=== PATIENT | female | born 1995 | race Two or more races ===

== ENCOUNTER 2021-02-01 13:02 | Emergency (ER) | payer OTHER ==
[2021-02-01 13:12] VITALS: BP 139/77
[2021-02-01] MEDS ORDERED: SULFAMETH/TRIMETH DS 800/160 MG TABLET PO STA (14:59)
--- NOTE | 2021-02-01 15:02 | ED Physician Documentation ---
History of Present Illness - Stated complaint Stated Complaint: LUMP RT BACKSIDE - Chief complaint Chief Complaint: General - Additonal information Additional information: 25-year old female presents emergency department with 3 days of right buttock pain. She has noticed swelling and this morning she began to have some bleeding. She does shave her perirectal area and thinks she may have an ingrown hair. Tetanus is up-to-date. No history of diabetes. Review of Systems Constitutional: reports: Reviewed and negative Nose: reports: Reviewed and negative Throat: reports: Reviewed and negative Cardiac: reports: Reviewed and negative Respiratory: reports: Reviewed and negative GI: reports: Reviewed and negative : reports: Reviewed and negative Skin: reports: Lesions (Right buttock) PD PAST MEDICAL HISTORY - Present Medications Home Medications: Ambulatory Orders Medication Instructions Recorded Confirmed HYDROcod/ACETAM 5/325 [[place] 5/325] 1 - 2 tablet PO Q6H PRN #14 tablet 02/01/21 Sulfamethox/Trimeth 800/160 1 each PO BID #14 tablet 02/01/21 [Bactrim Ds 800/160] - Allergies Allergies/Adverse Reactions: Allergies Allergy/AdvReac Type Severity Reaction Status Date / Time No Known Drug Allergies Allergy Verified 02/01/21 13:08 PD ED PE NORMAL - General General: Alert and oriented X 3. No: No acute distress (And pain.) - Cardiac Cardiac: RRR, No murmur - Respiratory Respiratory: No respiratory distress, Clear bilaterally - Rectal Rectal: Other (Right buttock with evidence that an abscess is draining with a moderate amount of purulent bloody fluid. No further fluctuance is felt with palpation. Abscess does not extend to the perirectal space. No rectal tenderness.) Results - Vitals Vitals: Vital Signs - 24 hr 02/01/21 13:08 Temperature 36.5 C Heart Rate 79 Respiratory 16 Rate Blood Pressure 139/77 H O2 Saturation 99 Oxygen O2 Source Room air PD MEDICAL DECISION MAKING - ED course Complexity details: reviewed results, re-evaluated patient, d/w patient ED course: 25-year-old female presents emergency department for evaluation of a right buttock abscess that began developing 3 days ago and started to drain today. She is exquisitely painful. On exam there is an abscess that is open and draining but no fluctuance is seen. I did offer patient the opportunity for incision and drainage here in the emergency department but after shared decision making we will start antibiotics today and if not markedly better in 48 hours return to the ER for more formal incision and drainage. However I am reassured that it is spontaneously draining at this time. Prescription for Bactrim and a limited amount of hydrocodone is sent. Departure - Departure Disposition: Home, Self Care Clinical Impression: Abscess of buttock, right Condition: Stable Record reviewed to determine appropriate education?: Yes Prescriptions: Sulfamethox/Trimeth 800/160 [Bactrim Ds 800/160] 1 each PO BID #14 tablet HYDROcod/ACETAM 5/325 [[place] 5/325] 1 - 2 tablet PO Q6H PRN #14 tablet PRN Reason: Pain Comments: Fatoumata you have an abscess on your right buttock. It has started to open and drained spontaneously therefore we will defer a formal an incision and drainage here in the emergency department. I would like you to fill the prescription for the Bactrim and begin taking twice daily as prescribed. Have also written a prescription for a limited amount of hydrocodone. Be careful with hydrocodone it intoxicated you and make you unsafe to drive. If your pain and symptoms are not markedly better in 48 to 72 hours or worsening before then please return to the emergency department at that time we would need to do a formal incision and drainage.
== END 2021-02-01 15:20 | disposition home or self-care (01) ==
LOC: ED 13:02
DX: L02.31 Cutaneous abscess of buttock (principal)
CPT/HCPCS: 99282; 99283; A9270

== ENCOUNTER 2021-04-26 07:44 | Emergency (ER) | payer OTHER ==
[2021-04-26] MEDS ORDERED: DEXAMETHASONE 10 MG/ML VIAL IVP STA (08:02)
[2021-04-26] MEDS ORDERED: KETOROLAC 15 MG/ML VIAL IVP STA (08:02)
[2021-04-26] MEDS ORDERED: SODIUM CHLORIDE 0.9% 1,000 ML IV STA (08:02)
--- NOTE | 2021-04-26 08:05 | ED Physician Documentation ---
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 No shortness of breath. 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 : None HEENT: None Musculoskeletal: None Derm: None - Past Surgical History Past Surgical History: Yes HEENT: Tonsil/Adenoidectomy - Present Medications Home Medications: Ambulatory Orders Medication Instructions Recorded Confirmed HYDROcod/ACETAM 5/325 [[place] 5/325] 1 - 2 tab PO Q6H PRN #15 tablet 04/26/21 Ibuprofen [Motrin] 800 mg PO Q8H PRN #20 tablet 04/26/21 Loperamide [Imodium] 2 mg PO QID PRN #10 cap 04/26/21 Ondansetron Odt [Zofran] 4 mg TL Q6H PRN #10 tablet 04/26/21 dexAMETHasone [Decadron] 4 mg PO BIDWM #10 tablet 04/26/21 - Allergies Allergies/Adverse Reactions: Allergies Allergy/AdvReac Type Severity Reaction Status Date / Time No Known Drug Allergies Allergy Verified 04/26/21 08:07 - Social History Does the pt smoke?: No Smoking Status: Never smoker Does the pt drink ETOH?: Yes Does the pt have substance abuse?: No - Immunizations Immunizations are current?: Yes PD ED PE NORMAL - Vitals Vital signs reviewed: Yes - General General: Alert and oriented X 3, No acute distress - HEENT HEENT: PERRL, EOMI - Neck Neck: Supple, no meningeal sign, No bony TTP - Cardiac Cardiac: RRR, No murmur - Respiratory Respiratory: No respiratory distress, Clear bilaterally - Abdomen Abdomen: Non tender - Derm Derm: Normal color, Warm and dry - Neuro Neuro: Alert and oriented X 3, Normal speech Results - Vitals Vitals: Vital Signs - 24 hr 04/26/21 04/26/21 04/26/21 07:49 10:06 11:45 Temperature 37.3 C 36.8 C 36.9 C Heart Rate 99 65 65 Respiratory 16 18 18 Rate Blood Pressure 137/87 H 115/93 H 114/68 O2 Saturation 98 100 100 Oxygen O2 Source Room air - Labs Labs: Laboratory Tests 04/26/21 07:54 Nasal Adenovirus (PCR) NOT DETECTED Nasal B. parapertussis DNA (PCR) NOT DETECTED Nasal Coronavir 229E PCR NOT DETECTED Nasal Coronavir HKU1 PCR NOT DETECTED Nasal Coronavir NL63 PCR NOT DETECTED Nasal Coronavir OC43 PCR NOT DETECTED Nasal Enterovir/Rhinovir PCR NOT DETECTED Nasal Influenza B PCR NOT DETECTED Nasal Influenza A PCR NOT DETECTED Nasal Parainfluen 1 PCR NOT DETECTED Nasal Parainfluen 2 PCR NOT DETECTED Nasal Parainfluen 3 PCR NOT DETECTED Nasal Parainfluen 4 PCR NOT DETECTED Nasal RSV (PCR) NOT DETECTED Nasal B.pertussis DNA PCR NOT DETECTED Nasal C.pneumoniae (PCR) NOT DETECTED Juan Human Metapneumo PCR NOT DETECTED Nasal M.pneumoniae (PCR) NOT DETECTED Nasal SARS-CoV-2 (PCR) DETECTED A PD MEDICAL DECISION MAKING - ED course ED course: 25-year-old woman active duty [employer] presents with typical Covid symptoms for 1 day and is found to be positive. She was administered Mab therapy which she is a candidate for given her BMI. Departure - Departure Disposition: 01 Home, Self Care Clinical Impression: COVID-19 Condition: Good Record reviewed to determine appropriate education?: Yes Instructions: ED Viral Syndrome Prescriptions: dexAMETHasone [Decadron] 4 mg PO BIDWM #10 tablet Loperamide [Imodium] 2 mg PO QID PRN #10 cap PRN Reason: Diarrhea Ibuprofen [Motrin] 800 mg PO Q8H PRN #20 tablet PRN Reason: PAIN &/OR FEVER HYDROcod/ACETAM 5/325 [[place] 5/325] 1 - 2 tab PO Q6H PRN #15 tablet PRN Reason: Pain Ondansetron Odt [Zofran] 4 mg TL Q6H PRN #10 tablet PRN Reason: Nausea / Vomiting Comments: You are found today to have COVID-19 in the setting of classic symptoms. You need to self isolate in your home. You should not leave your house, someone else should go to the pharmacy to pick up truck driver your prescriptions for you etc. Return if you develop significant shortness of breath. I am prescribing a short course of narcotic pain medication for you. These are potentially dangerous and addictive medications that should be used carefully. These medications may constipate you. Take an [id number] stool softener (docusate) twice daily with plenty of water while taking these medications. If you go 24 hours without a bowel movement, take [id number] miralax, per package instructions. Do not drink or drive while taking these medications. If you received narcotic or sedating medications while in the emergency department, do not drive for 24 hours. Store this medication in a safe, secure place and out of reach of children. It is a violation of federal law to give or sell this medication to another person or to use in a manner other than prescribed. The ED will not refill narcotic prescriptions, including prescriptions lost or stolen. To dispose of unwanted medications: 1. [facility] at [address] in [place] has a medication drop box. They accept prescription medications (in pill form) Monday through Monday 9:00 a.m. to 5:00 p.m. 2. The [facility] accepts prescription medications (in pill form only) for disposal year round. Call for more information. 3. Contact the [facility] for the next [facility] sponsored prescription drug collection event. , [phone], or [phone]; Note that many narcotic pain relievers also contain Tylenol/acetaminophen. Please ensure that your total dose of acetaminophen from all sources does not exceed 3 g (3000 mg) per day. If any friends or family get sick and would like to have a Covid test done, but do not have signs or symptoms that would necessitate being hospitalized, we encourage testing through our coronavirus swabbing station, call [phone] to schedule an appointment. Forms: Activity restrictions Discharge Date/Time: 04/26/21 11:45
[2021-04-26] MEDS ORDERED: ONDANSETRON 4 MG/2 ML VIAL IVP STA (08:09)
[2021-04-26 09:17] LABS: CORONAVIRUS 229E-RESP PCR NOT DETECTED; CORONAVIRUS HKU1-RESP PCR NOT DETECTED; CORONAVIRUS NL63-RESP PCR NOT DETECTED; CORONAVIRUS OC43-RESP PCR NOT DETECTED
[2021-04-26 09:21] LABS: B. PARAPERTUSSIS- RESP PCR PAN NOT DETECTED; B. PERTUSSIS- RESP PCR PANEL NOT DETECTED; C. PNEUMONIAE- RESP PCR PANEL NOT DETECTED; HUMAN METAPNEUMOVIRUS NOT DETECTED; INFLUENZA A- RESP PCR PANEL NOT DETECTED; INFLUENZA B - RESP PCR PANEL NOT DETECTED; M. PNEUMONIAE- RESP PCR PANEL NOT DETECTED; PARAINFLUENZA VIRUS 1 NOT DETECTED; PARAINFLUENZA VIRUS 2 NOT DETECTED; PARAINFLUENZA VIRUS 3 NOT DETECTED; PARAINFLUENZA VIRUS 4 NOT DETECTED; RHINOVIRUS/ENTEROVIRUS NOT DETECTED; RSV- RESP PCR PANEL NOT DETECTED; SARS-CoV-2 -RESP PCR PANEL DETECTED
[2021-04-26] MEDS ORDERED: [UNRECOGNIZED DRUG - OTHER] IV ONE (10:00)
[2021-04-26 11:58] VITALS: BP 114/68
== END 2021-04-26 11:45 | disposition home or self-care (01) ==
LOC: ED 07:44
DX: U07.1 COVID-19 (principal); Z23 Encounter for immunization
CPT/HCPCS: 0202U; 96374; 96375; 99284; 99285; J7040; M0243; Q0243

== ENCOUNTER 2021-07-15 16:41 | Emergency (ER) | payer OTHER ==
[2021-07-15 17:07] VITALS: BP 143/96
--- NOTE | 2021-07-15 17:18 | ED Physician Documentation ---
PD HPI HEADACHE - Stated complaint Stated Complaint: CHILLS/HEADACHE/LIGHTHEADED - Chief complaint Chief Complaint: Heent - History obtained from History obtained from: Patient (Who presents with a headache earlier today that has since resolved and a "fuzzy" feeling earlier. She also felt some chills. She has not attempted any medication or other treatment for this but was told to come in and be checked for Covid to be on the safe side. 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: None : None HEENT: None Musculoskeletal: None Derm: None - Past Surgical History Past Surgical History: Yes HEENT: Tonsil/Adenoidectomy - Present Medications Home Medications: Ambulatory Orders Medication Instructions Recorded Confirmed No Known Home Medications 07/15/21 07/15/21 - Allergies Allergies/Adverse Reactions: Allergies Allergy/AdvReac Type Severity Reaction Status Date / Time No Known Drug Allergies Allergy Verified 07/15/21 17:07 - Social History Does the pt smoke?: No Smoking Status: Never smoker Does the pt drink ETOH?: Yes Does the pt have substance abuse?: No - Immunizations Immunizations are current?: Yes PD ED PE NORMAL - Vitals Vital signs reviewed: Yes - General General: Alert and oriented X 3, No acute distress, Well developed/nourished - HEENT HEENT: Atraumatic, PERRL, EOMI, Ears normal, Moist mucous membranes, Pharynx benign - Neck Neck: Supple, no meningeal sign, No bony TTP, No adenopathy, No JVD - Cardiac Cardiac: RRR, No murmur - Respiratory Respiratory: No respiratory distress, Clear bilaterally - Abdomen Abdomen: Normal bowel sounds, Soft, Non tender, Non distended - Derm Derm: Normal color, Warm and dry, No rash - Neuro Neuro: Alert and oriented X 3 Eye Opening: Spontaneous Motor: Obeys Commands Verbal: Oriented GCS Score: 15 - Psych Psych: Normal mood, Normal affect Results - Vitals Vitals: Vital Signs - 24 hr 07/15/21 16:45 Temperature 37 C Heart Rate 73 Respiratory 16 Rate Blood Pressure 143/96 H O2 Saturation 100 Oxygen O2 Source Room air PD MEDICAL DECISION MAKING - ED course Complexity details: considered differential ED course: 25-year-old female who presented with a headache that has since resolved. She was advised by her work to go get tested for Covid. She is feeling better now. Covid test was obtained and results will be available in 24 to 48 hours. Patient advised to rest in stable hydrated, she may take Tylenol as needed for headache. Headache was not severe, no accompanying neuro changes, no fever or other symptoms of Covid, I have low suspicion though we will check. Patient advised to stay self isolate until tests resulted. Departure - Departure Disposition: 01 Home, Self Care Clinical Impression: Headache Qualifiers: Headache type: unspecified Headache chronicity pattern: acute headache Intractability: not intractable Qualified Code(s): R51.9 - Headache, unspecified Condition: Good Comments: Please stay home and self isolate until you receive your covid results. You may take tylenol as needed for headache, ensure you are getting plenty of oral fluids and rest. Return to the ER if you have worsening symptoms. Forms: Activity restrictions
== END 2021-07-15 17:42 | disposition home or self-care (01) ==
LOC: ED 16:41
DX: R51.9 Headache, unspecified (principal); Z86.16 Personal history of COVID-19; Z20.822 Contact with and (suspected) exposure to COVID-19
CPT/HCPCS: 99282; 99283

== ENCOUNTER 2021-12-03 06:31 | Emergency (ER) | payer OTHER ==
[2021-12-03 06:46] VITALS: BP 123/60
[2021-12-03] MEDS ORDERED: CHERRY SYRUP 10 ML UDC PO ONE (07:20)
[2021-12-03] MEDS ORDERED: DEXAMETHASONE 10 MG/ML VIAL PO STA (07:20)
--- NOTE | 2021-12-03 07:23 | ED Physician Documentation ---
PD HPI SKIN - Stated complaint Stated Complaint: NAUSEA/FACE BURNING - Chief complaint Chief Complaint: Wound - History obtained from History obtained from: Patient - History of Present Illness Timing - onset: Yesterday Timing - duration: Days (2) Timing - details: Gradual onset, Still present Location: Face Quality / character: Itchy, Burning, Swelling Improved by: Benadryl Associated symptoms: Facial swelling. No: Fever, Myalgias, Headache, Dyspnea, N/V/D, Urinary sx Contributing factors: Other (exposure to aminah in shop) Similar symptoms before: Has not had sx before Recently seen: Not recently seen - Additional information Additional information: Previously well 25-year-old female picked up a protective helmet at her work and put this on and subsequently she began to develop some itching around the edges of her face and yesterday developed itching burning redness and hives. She took some Benadryl the hives got better she is continue to have burning sensation to her face. She is having some difficulty with long COVID symptoms including some shortness of breath. She is not otherwise ill. Her shortness of breath is not different from usual. She is not otherwise ill. She did get some mild nausea. Review of Systems Constitutional: denies: Fever Eyes: denies: Decreased vision Ears: denies: Ear pain Nose: denies: Congestion Throat: denies: Sore throat Cardiac: denies: Chest pain / pressure Respiratory: reports: Dyspnea. denies: Cough GI: reports: Nausea. 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 : None HEENT: None Musculoskeletal: None Derm: None - Past Surgical History Past Surgical History: Yes HEENT: Tonsil/Adenoidectomy - Present Medications Home Medications: Ambulatory Orders Medication Instructions Recorded Confirmed No Known Home Medications 07/15/21 12/03/21 - Allergies Allergies/Adverse Reactions: Allergies Allergy/AdvReac Type Severity Reaction Status Date / Time No Known Drug Allergies Allergy Verified 12/03/21 06:46 - Social History Does the pt smoke?: No Smoking Status: Former smoker Does the pt drink ETOH?: No Does the pt have substance abuse?: No - Immunizations Immunizations are current?: Yes - POLST Patient has POLST: No PD ED PE NORMAL - Vitals Vital signs reviewed: Yes (normal) - General General: Alert and oriented X 3, No acute distress, Well developed/nourished - HEENT HEENT: Atraumatic, PERRL, EOMI, Other (Mild erythema and tiny areas of excoriation to the forehead. There is no significant swelling to the face that I am able to appreciate.) - Neck Neck: Supple, no meningeal sign - Cardiac Cardiac: RRR, No murmur - Respiratory Respiratory: No respiratory distress, Clear bilaterally - Abdomen Abdomen: Soft, Non tender - Back Back: No CVA TTP, No spinal TTP - Derm Derm: Normal color, Warm and dry, Other (mild erythema to the face) - Extremities Extremities: No deformity, No edema - Neuro Neuro: Alert and oriented X 3, finishing inspector 2-12 intact, No motor deficit, No sensory deficit, Normal speech Eye Opening: Spontaneous Motor: Obeys Commands Verbal: Oriented GCS Score: 15 - Psych Psych: Normal mood, Normal affect Results - Vitals Vitals: Vital Signs - 24 hr 12/03/21 06:35 Temperature 36.3 C L Heart Rate 90 Respiratory 18 Rate Blood Pressure 123/60 O2 Saturation 98 Oxygen O2 Source Room air PD MEDICAL DECISION MAKING - ED course Complexity details: reviewed old records, considered differential, d/w patient ED course: 25-year-old female with what appears to be a contact dermatitis to the face has bathed she has used some cortisone to her face her face does not look like it is overwhelmed. She does not have hives today she appears to have been responding to the Benadryl and I have added in a dose of dexamethasone and encouraged patient to take Benadryl or a nonsedating hist antihistamine for the next 2 days. I have given her a note for work for 2 days. She does appear uncomfortable related to this itching and burning on her face. Departure - Departure Disposition: 01 Home, Self Care Clinical Impression: Contact dermatitis Qualifiers: Contact dermatitis type: allergic Contact dermatitis trigger: other trigger Qualified Code(s): L23.89 - Allergic contact dermatitis due to other agents; L23.8 - Allergic contact dermatitis due to other agents Condition: Stable Instructions: ED Dermatitis Contact Follow-Up: HELENE GILLIS MD [Primary Care Provider] - Comments: Fatoumata, today it looks like you have a contact dermatitis and the recommendation is to wash your skin thoroughly apply [id number] cortisone for discomfort and to use an antihistamine for the next 2 days. You have been given a dose of dexamethasone today and the expectation is that over the next several hours the symptoms will improve dramatically. We are not expecting you to have progression of these symptoms. If that happens come back and see us or get into see Dr. Perry. Forms: Activity restrictions
== END 2021-12-03 07:46 | disposition home or self-care (01) ==
LOC: ED 06:31
DX: L23.89 Allergic contact dermatitis due to other agents (principal); Z87.891 Personal history of nicotine dependence
CPT/HCPCS: 99282; A9270

== ENCOUNTER 2022-09-06 19:15 | Outpatient (CLI) | payer OTHER | END 2022-09-06 19:16 | disposition home or self-care (01) | LOC: SC 19:15 | PROVIDERS: ATTEND Nurse Practitioner Family | DX: G47.33 Obstructive sleep apnea (adult) (pediatric) (principal); G47.61 Periodic limb movement disorder | CPT/HCPCS: 95810 ==

== ENCOUNTER 2022-09-28 14:07 | Outpatient (CLI) | payer OTHER ==
[2022-09-28 14:40] VITALS: BP 124/2
--- NOTE | 2022-09-28 14:40 | SLEEP CARE CONSULTATION ---
Information from patient questionnaire entered by Alexandrea Arreola. I have reviewed and concur with the information entered by Alexandrea Arreola. This document represents the service I personally performed and the decisions made by , Erlinda Lindsay ARNP. History of Present Illness Service Date and Time: 09/28/2022 1407 Initial [place] Sleepiness Scale score: 10 (08/25/22) Current [place] Sleepiness Scale score: 11 (09/28/22) Additional HPI information: ROHITH LARA returns for follow up and results of the recently performed polysomnography. I explained the pathophysiology behind obstructive sleep apnea. We then spent quite a bit of time discussing different treatment options. For mild obstructive sleep apnea, surgery and oral appliance are alternatives to nasal CPAP therapy but in moderate or severe cases, nasal CPAP is the most effective and reliable treatment. Because apnea is primarily in supine position, then positional management therapy could be effective. Methods discussed such as positioning with pillows to prevent supine sleep. I reviewed the impact of weight changes on sleep apnea and strongly recommended losing weight. After some discussion, the patient opted to go with the nasal CPAP therapy. Nasal autoCPAP set at 4-15 cmH20 will be ordered with rationale explained. A manual titration study will be ordered if unable to find optimal pressure with office adjustments. I explained how CPAP machine works and what to expect when using the machine. Using CPAP every night in order to get used to it was emphasized. Patient advised to put CPAP mask on before getting into bed so as not to fall asleep wit hout CPAP. To assist acclimation to CPAP use, it could also be used for a short time during day while reading or watching TV. The patient was instructed to call the CPAP supplier to discuss any mechanical problem that may occur. If the mask given is uncomfortable or is difficult to keep on through the night even with adjustment, contact the CPAP supplier as many will replace with another mask sty le if notified before 30 days. If snoring or perceives is not getting enough air or too much air from the machine, notify this office. Patient does not drink alcohol. Patient was cautioned about risks of drowsy driving until sleepiness symptoms resolve. Patient denies drowsy driving. Sleep Study - Results Type of Sleep Study: Polysomnography (COMPLETED 09/06/2022) Prior sleep studies: No Polysomnography/Home Sleep Study results: IMPRESSION: The quality of the study is good. The patient had reduced sleep efficiency due to sleep onset insomnia and frequent awakenings during the night. The sleep architecture was abnormal for sleep fragmentation and reduced amount of time spent in REM and slow wave sleep (N3). Respiratory monitoring showed moderate obstructive sleep apnea-hypopnea (AHI = 28.3) associated with frequent arousals, oxyhemoglobin desaturation and mild hypoxia (billy oxygen saturation of 86%). The respiratory events occurred independently of sleep stage and body position (supine AHI = 29.8; non-supine = 25.32). Snore was light to moderate in intensity. There was moderate periodic leg movement of sleep not contributing to the sleep fragmentation. Cardiac rhythm was normal sinus rhythm without significant arrhythmia. No abnormal behavior (parasomnia) observed during the night. Allergies and Home Medications Drug allergies reviewed: Yes (NKDA) Home medication list reviewed: Yes (Gabapentin 300 mg nightly) Review of Systems Review of systems same as previous: Yes (fibromyalgia pain) Physical Exam Vital signs obtained and entered by: ALEXANDREA Lopez MA Blood Pressure: 124/2 (LEFT ARM) Cuff size: long Heart Rate: 87 O2 Saturation: 97 Height: 5 ft 8.5 in Weight: 285 lb 12.8 oz Body Mass Index: 42.8 BMI Classification: Morbidly Obese Impression and Plan 1. Obstructive Sleep Apnea-Hypopnea Syndrome, moderate, with lowest oxygen saturation of 86%. Obviously this is the cause of the patients symptoms of unrefreshed sleep, and excessive daytime sleepiness. Positive pressure therapy could benefit fibromyalgia and pre-diabetes. As mentioned above, the patient will be started on nasal autoCPAP therapy with pressure set at 4-15 cmH2O. Compliance guidelines also reviewed. A copy of compliance guidelines will be given for reference at check out. 2. Periodic limb movement, moderate, that did not fragment patients sleep. Periodic limb movement of sleep (PLMS) is characterized by episodes of repetitive limb movements that occur during sleep and usually involve the lower limbs. The etiology is unknown. Caffeine can aggravate PLMS and should be avoided. Sleep hygiene methods can also improve sleep as well as lifestyle changes such as regular exercise. Patient was advised that no treatment is needed at this time. If symptoms increase, then further evaluation is indicated. * Nasal auto CPAP therapy, pressure at 4-15 cm H2O. * Attempt to lose weight. * Avoid alcohol consumption near bedtime. * Avoid supine sleep until using CPAP. * The patient is again cautioned about driving until sleepiness completely resolves. * Return one month after CPAP obtained. I will assess response to therapy and compliance at that time. Counseling Topics: Weight loss health impact Visit Type: In Office Time Spent with Patient (minutes): 20 Provider Statement: I spent 100% of the Face to Face Visit with the patient with greater than 50% spent counseling the patient and coordination of care.
== END 2022-09-28 14:08 | disposition home or self-care (01) ==
LOC: SC 14:07
PROVIDERS: ATTEND Nurse Practitioner Family
DX: G47.33 Obstructive sleep apnea (adult) (pediatric) (principal); G47.61 Periodic limb movement disorder; E66.01 Morbid (severe) obesity due to excess calories; Z68.41 Body mass index [BMI] 40.0-44.9, adult
CPT/HCPCS: 99212; 99213

== ENCOUNTER 2022-10-10 13:16 | Emergency (ER) | payer OTHER ==
[2022-10-10] MEDS ORDERED: KETOROLAC 60 MG/2 ML VIAL IM STA (14:58)
--- NOTE | 2022-10-10 15:04 | ED Physician Documentation ---
PD HPI HEADACHE - Stated complaint Stated Complaint: MIGRAINE/WEAKNESS - Chief complaint Chief Complaint: Neuro - History obtained from History obtained from: Patient - History of Present Illness Timing - onset: How many hours ago (8) Timing - onset during: Rest Timing - details: Gradual onset Pain level max: 7 Pain level now: 7 Location: Global Quality: Aching Contributing factors: No: Anticoagulated, Possible carbon monoxide, Hypertension, Recent illness, Trauma - Additional information Additional information: Patient is a 26-year-old female has a history of migraine headaches. States that she started having a headache this morning. Took Excedrin without relief. She states that Toradol has helped in the past. Worse with light and sound, better with closing her eyes and being in a dark room. Feels similar to prior migraines. No trauma. No fevers. Has had some nausea but no vomiting. No diarrhea. Denies any possibility of . She states that she needs a no te for work. Review of Systems Constitutional: denies: Fever, Chills Eyes: reports: Photophobia Ears: denies: Loss of hearing, Ear pain, Drainage/discharge Nose: denies: Rhinorrhea / runny nose, Congestion Respiratory: denies: Cough GI: denies: Abdominal Pain, Vomiting, Diarrhea Skin: denies: Rash Musculoskeletal: denies: Neck pain, Back pain Neurologic: denies: Focal weakness, Numbness, Head injury, LOC PD PAST MEDICAL HISTORY - Past Medical History Cardiovascular: None Respiratory: None Neuro: None Endocrine/Autoimmune: None GI: None CARE AIDE: None : None HEENT: None Musculoskeletal: None Derm: None - Past Surgical History Past Surgical History: Yes HEENT: Tonsil/Adenoidectomy - Present Medications Home Medications: Ambulatory Orders Medication Instructions Recorded Confirmed DULoxetine [Cymbalta] 30 mg PO DAILY 08/25/22 10/10/22 metFORMIN [Glucophage] 500 mg PO DAILY 08/25/22 10/10/22 Gabapentin [Neurontin] 300 mg PO HS 09/28/22 10/10/22 - Allergies Allergies/Adverse Reactions: Allergies Allergy/AdvReac Type Severity Reaction Status Date / Time No Known Drug Allergies Allergy Verified 10/10/22 13:30 - Social History Does the pt smoke?: No Smoking Status: Former smoker Does the pt drink ETOH?: No Does the pt have substance abuse?: No - Immunizations Immunizations are current?: Yes - POLST Patient has POLST: No PD ED PE NORMAL - Vitals Vital signs reviewed: Yes - General General: Alert and oriented X 3, No acute distress, Well developed/nourished - HEENT HEENT: Atraumatic, PERRL, Moist mucous membranes, Pharynx benign - Neck Neck: Supple, no meningeal sign, No bony TTP - Cardiac Cardiac: RRR, Strong equal pulses - Respiratory Respiratory: No respiratory distress, Clear bilaterally - Abdomen Abdomen: Soft, Non tender, Non distended - Back Back: No CVA TTP, No spinal TTP - Derm Derm: Warm and dry - Extremities Extremities: No edema, No calf tenderness / cord - Neuro Neuro: Alert and oriented X 3, 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 Normal gait) Eye Opening: Spontaneous Motor: Obeys Commands Verbal: Oriented GCS Score: 15 - Psych Psych: Normal mood, Normal affect Results - Vitals Vitals: Vital Signs - 24 hr 10/10/22 13:26 Temperature 36.4 C L Heart Rate 69 Respiratory 16 Rate Blood Pressure 145/104 H O2 Saturation 96 Oxygen O2 Source Room air PD Medical Decision Making - ED course Complexity details: reviewed old records, re-evaluated patient, considered differential, d/w patient ED course: 26-year-old female with her usual migraine headache. She has responded well to Toradol in the past. Toradol given here and feels better. No evidence of subarachnoid hemorrhage, tumor. No indication for head CT. No indication for CT angiogram or lumbar puncture. We will have the patient follow-up with her doctor for further care. Patient counseled regarding signs and symptoms for which I believe and urgent re-evaluation would be necessary. Patient with good understanding of and agreement to plan and is comfortable going home at this time This document was made in part using voice recognition software. While efforts are made to proofread this document, sound alike and grammatical errors may occur. Departure - Departure Disposition: 01 Home, Self Care Clinical Impression: Migraine Qualifiers: Migraine type: unspecified Status migrainosus presence: without status migrainosus Intractability: not intractable Qualified Code(s): G43.909 - Migraine, unspecified, not intractable, without status migrainosus Condition: Good Instructions: ED Headache Migraine Follow-Up: LUIS REYEZ MD [Primary Care Provider] - Within 1 week Comments: Please follow-up with your primary care provider for further care. Return if you worsen. You can discuss other migraine therapies with your doctor. Forms: Activity restrictions
[2022-10-10 15:59] VITALS: BP 122/86
== END 2022-10-10 15:58 | disposition home or self-care (01) ==
LOC: ED 13:16
DX: G43.909 Migraine, unspecified, not intractable, without status migrainosus (principal)
CPT/HCPCS: 96372; 99283